=== PATIENT | female | born 1965 | race Caucasian/White ===

== ENCOUNTER 2022-04-21 06:54 | Emergency (ER) | payer BC, OTHER ==
[~2022-04-21] VITALS: Ht 162.6 cm; Wt 107.3 kg
[2022-04-21 07:46] LABS: HEMATOCRIT 46.4 % (36.0-47.0); HEMOGLOBIN 15.4 g/dl (12.0-15.5); MEAN CORPUSCULAR HEMOGLOBIN 30.9 pg (27.0-33.0); MEAN CORPUSCULAR HGB CONC 33.2 g/dl (32.0-36.5); PLATELET COUNT, AUTOMATED 304 10^3/uL (150-450); RED BLOOD COUNT 4.99 10^6/uL (4.00-5.40); WHITE BLOOD COUNT 7.8 10^3/uL (4.0-10.0)
[2022-04-21 08:13] LABS: BLOOD UREA NITROGEN 15 MG/DL (9-23); CARBON DIOXIDE LEVEL 25 MMOL/L (20-31); CHLORIDE LEVEL 107 MMOL/L (98-107); CREATININE FOR GFR 0.58 MG/DL (0.55-1.30); GLOMERULAR FILTRATION RATE > 60.0 (>51); GLUCOSE, FASTING 108 MG/DL (60-100); POTASSIUM SERUM 3.6 MMOL/L (3.5-5.1); SODIUM LEVEL 142 MMOL/L (136-145)
[2022-04-21 08:26] LABS: RSV AMPLIFICATION NEGATIVE (NEGATIVE)
[2022-04-21 08:39] LABS: MAGNESIUM LEVEL 1.8 MG/DL (1.8-2.4)
[2022-04-21 08:41] LABS: CPK CREATINE PHOSPHOKINASE 55 U/L (34-145); MB/CK RELATIVE INDEX 1.81 (< OR =4)
[2022-04-21 08:44] LABS: THYROID STIMULATING HORMONE 2.679 uIU/ML (0.55-4.78)
[2022-04-21] MEDS ORDERED: ONDANSETRON 4MG 2ML VIAL IV ONE (10:30)
[2022-04-21 11:45] VITALS: BP 151/79
[2022-04-21] MEDS ORDERED: AZEL0.1S NARES (11:45)
== END 2022-04-21 11:51 | disposition home or self-care (01) ==
LOC: M ED 06:54
DX: H81.399 Other peripheral vertigo, unspecified ear (principal); J01.90 Acute sinusitis, unspecified; G35 Multiple sclerosis; G43.909 Migraine, unspecified, not intractable, without status migrainosus